=== PATIENT | male | born 1980 | race Two or more races ===

== ENCOUNTER 2018-05-31 14:55 | Emergency (ER) | payer MEDICAID ==
[~2018-05-31] VITALS: Ht 193 cm; Wt 169.2 kg
[2018-05-31 15:10] VITALS: BP 141/106
== END 2018-05-31 16:10 | disposition home or self-care (01) ==
LOC: ER 15:16
DX: R22.41 Localized swelling, mass and lump, right lower limb (principal); M79.604 Pain in right leg; Z87.442 Personal history of urinary calculi
CPT/HCPCS: 93971-TC